=== PATIENT | male | born 1980 | race Caucasian/White ===

== ENCOUNTER → 2019-06-27 | Outpatient (CLI) | payer OTHER ==
--- NOTE | 2019-06-27 12:38 | PN ---
PROGRESS NOTE This is a 38-year-old, morbidly obese, male patient with severe obstructive sleep apnea with AHI of 43. The patient is coming to see me for a followup. I noted the patient was given CPAP therapy and currently is using an APAP, minimum of 10 maximum of 18 cm of water. The patient has been switched to an afternoon shift from [employer]. He goes to work at around 11 a.m. and he comes home at around 9:30 p.m. He is in bed by around 2 a.m. and he gets out of bed around 10 a.m. in the morning. This scheduled has suited him much better and the patient is feeling much more alert and awake during the day. Based on the compliance data, the patient has been averaging about 7.4 hours of CPAP use per night. CPAP use for more than 4 hours is 28 out of 30. The average CPAP pressure is around 16 cm of water. Leak is 5 L/minute and AHI is down to 1.6. The patient is using AirFit F20 full face mask. The patient is feeling great. He Is much improved. He is alert and awake during the day. No major hypersomnia or sleepiness. 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 He has no complaints at all. REVIEW OF SYSTEMS: Fourteen-point review of system was done and positive findings are mentioned above in history of present illness. PHYSICAL EXAMINATION: VITAL SIGNS: BP is 140/84, pulse 86, respirations 16, temperature 99.1, weight is 416. GENERAL APPEARANCE: Calm, comfortable. HEAD: Atraumatic, normocephalic. NECK: Supple. There is no JVD. There is no goiter or neck mass. LUNGS: Clear to auscultation. HEART: Sounds regular rate and rhythm. Normal S1, S2. No S3, S4. No murmurs. ABDOMEN: Soft, nontender. No organomegaly. EXTREMITIES: No edema. No cyanosis or clubbing. NEUROLOGIC: Alert and oriented x3. No focal neurological deficits. PSYCHIATRIC: Negative for anxiety or depression. IMPRESSION: 1. Severe obstructive sleep apnea AHI of 43 currently on a APAP with excellent clinical response and compliance. 2. Morbid obesity with an interval of 15 pound weight gain. Current body weight is up to 416. 3. Hypersomnia, improved. [place] score is down to zero. 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 5. Mild intermittent bronchial asthma. PLAN: 1. Continue APAP at the same level of pressure. 2. Utilize AirFit F20 full face mask. 3. Encourage weight loss. 4. Treatment is extremely successful. No need for any further adjustments. 5. The patient will see me back in a year's time and follow up earlier if needed. MMODL / IJN: [id number] /

== ENCOUNTER → 2021-07-15 | Outpatient (CLI) | payer OTHER ==
--- NOTE | 2021-07-15 16:58 | PN ---
PROGRESS NOTE Malik is a 41-year-old male patient coming in for a regular check regarding obstructive sleep apnea. His last evaluation was done approximately 2 years ago. He has a case of severe obstructive sleep apnea. His AHI is 43. He is also morbidly obese and over the past 2 years he has managed to lose around 10 pounds. He continues to be on APAP mode with his ResMed CPAP unit at a pressure minimum of 10, maximum of 18. He is using an AirFit F20 full-face mask. He has demonstrated excellent compliance over the past 2 years. He is still waking up refreshed and alert during the day. He is wearing his CPAP every night. CPAP compliance based on a 30-day review has been excellent with an AHI of 0.6 while on treatment and a leak of 24 L/minute. His average pressure as delivered by the machine is 15.6. The patient has been averaging around 7.4 hours of CPAP use per night. His CPAP use for more than 4 hours is 98%. His Spurger score is only 3. REVIEW OF SYSTEMS: Fourteen-point review of system was done; essentially negative other than things as mentioned above. It is positive for weight loss. No sleep paralysis. No hallucinations. No cataplexy. No head trauma. No sore throat. No congestive heart failure. MEDICATION: Medications include lisinopril 20 mg twice a day, Cardizem 180 mg p.o. daily, loratadine 10 mg p.o. daily, Symbicort 160/4.5 two puffs twice a day, albuterol HFA on an as-needed basis. PHYSICAL EXAMINATION: BP is 121/74, pulse 77, respiratory rate 17, temperature 97.9, saturation 97% on room air. Spurger score is 3. BMI is 58.5, height is 5 feet 10 inches, weight 407. GENERAL APPEARANCE: Calm, comfortable, obese. HEAD: Atraumatic, normocephalic. NECK: Supple. No JVD. No goiter or neck masses. Mallampati class 4. LUNGS: Diminished. Otherwise clear. HEART: Heart sounds are regular rate and rhythm. Normal S1, S2. No S3, S4. No murmurs. ABDOMEN: Soft. Organs cannot palpated due to morbid obesity. No direct tenderness. No rebound tenderness or guarding. EXTREMITIES: Trace edema. There is no cyanosis or clubbing. IMPRESSION: 1. Severe obstructive sleep apnea. AHI of 43. Currently on APAP. 2. Chronic hypersomnia, improved. Spurger score is down to 3. 3. Morbid obesity with interval weight loss. Body mass index is down to 58. 4. Hypertension. 5. Bronchial asthma. PLAN: 1. Continue CPAP therapy at the same level of pressure. 2. Encourage further weight loss. 3. Refill the CPAP supplies, including the AirFit F20 full-face mask. 4. Implement good sleep hygiene measures. 5. See me back in a few years' time in followup. Condition is stable and the treatment is successful for now. MMODL / IJN: [id number] /
== END ==
LOC: SLEEP 14:48
PROVIDERS: ATTEND Internal Medicine Critical Care Medicine
DX: G47.33 Obstructive sleep apnea (adult) (pediatric) (principal); E66.01 Morbid (severe) obesity due to excess calories; I10 Essential (primary) hypertension; J45.909 Unspecified asthma, uncomplicated; Z68.43 Body mass index [BMI] 50.0-59.9, adult; Z79.899 Other long term (current) drug therapy; Z79.51 Long term (current) use of inhaled steroids; Z99.89 Dependence on other enabling machines and devices